=== PATIENT | male | born 1990 | race Caucasian/White ===

== ENCOUNTER 2024-02-14 20:10 | Emergency (ER) | payer OTHER, SELFPAY ==
[2024-02-14 20:11] VITALS: BP 120/80; PULSE 68; RESP 18; TEMP 37; O2SAT 97; BMI 28.0
--- NOTE | 2024-02-14 20:32 | CT_ITS ---
STUDY: CT BRAIN WITHOUT CONTRAST REASON FOR EXAM: Male, 33 years old. headache RADIATION DOSAGE (If Supplied By Facility): CTDIvol = ( 44.99 ) mGy, DLP = ( 829.85 ) mGycm TECHNIQUE: Transaxial CT imaging of the brain was performed without administration of intravenous contrast material. Individualized dose optimization techniques were used for this CT. COMPARISON: No relevant priors. FINDINGS: Normal soft tissue structures. Normal calvarium. Normal size ventricles and extra-axial spaces for the patient''s age. Normal white matter tracts of the cerebral hemispheres. Normal basal ganglia and thalami. Normal brainstem. Normal cerebellum. There is no intracranial hemorrhage. There are no findings of an acute ischemic infarction. Normal visualized paranasal sinuses. CT/Brain/Head without Contrast IMPRESSION: Normal unenhanced CT scan of the brain. Electronically Signed: Brett Pan MD at 21:06 EDT ,
[2024-02-14] MEDS: Metoclopramide 10 MG/2 ML Vial IV (20:45)
[2024-02-14] MEDS: DiphenhydrAMINE 50 MG/ML Syringe 25 MG IV (20:46)
[2024-02-14] MEDS: Ketorolac 15 MG/ML Vial IV (20:46)
[2024-02-14 20:54] LABS: Absolute Lymphocyte Count 3.09 X10^3/uL (0.83-4.51); Basophil# 0.04 X10^3/uL; Basophil% 0.5 % (0-1); Eosinophil# 0.21 X10^3/uL; Eosinophils% 2.4 % (0-5); Hematocrit 44.1 % (40-54); Hemoglobin 15.1 g/dL (13.0-16.5); Lymphocyte # 3.09 X10^3/ul (0.83-4.51); Lymphocyte % 35.4 % (19-41); Mean Corp Hgb Conc 34.2 g/dL (32-36); Mean Corpuscular Hgb 29.1 pg (27.0-32.0); Mean Platelet Vol. 8.4 fl (6.2-12.0); Monocyte# 0.43 X10^3/uL; Monocyte% 4.9 % (0-10); NRBC Flagged by Analyzer 0 % (0-5); Neutrophil # 4.96 X10^3/uL (2.7-7.7); Neutrophil % 56.7 % (47-70); Platelet Count 281 K/mm3 (150-450); RBC Distribution Width SD 39.9 fl (35.1-43.9); Red Blood Count 5.19 M/mm3 (4.6-6.2); White Blood Count 8.7 K/mm3 (4.4-11.0)
[2024-02-14 21:07] LABS: Anion Gap 3 (5-15); BUN 14 mg/dL (7-18); BUN/Creat Ratio 15.9 RATIO (10-20); Calcium,Total 8.4 mg/dL (8.5-10.1); Chloride 109 mmol/L (98-107); Creatinine, Serum 0.88 mg/dL (0.70-1.30); EST Glomerular Filtration Rate 104 mL/min (>60); Est Glom Filt Rate - Afr Amer 126 mL/min (>60); Estimated Creatinine Clearance 135.46 ml/min; Glucose 115 mg/dL (74-106); Potassium 4.4 mmol/L (3.5-5.1); Sodium Level 141 mmol/L (136-145)
--- NOTE | 2024-02-14 21:10 | EDS_ITS ---
<Statement entered by Rani Mayer MD - 02/14/24 23:23> I have personally performed a face to face assessment of the patient and have reviewed the SAMUEL Note. Patient present secondary to migraine headache. He does have a history of migraines. Over the past week or slightly more he has been having frequent headaches behind his eyes. He does have some light sensitivity and nausea as well. He denies any recent URI symptoms. He denies any recent head trauma. Patient lying in a darkened room in no acute distress. Head and neck examination unremarkable. Heart regular rate and rhythm. Lung sounds are clear. Neuroexam is nonfocal. Lab work and CT scan of the head obtained given the duration of his symptoms. No acute findings are noted. Patient received Toradol, Reglan, Benadryl, and IV fluids. Repeat evaluation headache is improved and has been able to sleep. He will be discharged home with family. Return instructions provided. HPI History of Present Illness Chief Complaint: Headache Narrative Narrative: Patient is a 33-year-old male with history of migraine headaches who presents to the emergency department for with worsening headache. Patient states over the last week, week and a half, has been having significant headaches behind his eyes that feels like they are being pulled backwards. Patient has been to the emergency department before for his migraines. He does not remember them being this bad. Patient denies any neurological signs or symptoms such as weakness, patient states he is photosensitive, he also has nausea. [facility] Medical History no medical history Home Medications No Known/Unobtainable [No Known Home Medications] 07/17/16 [History Last Taken Unknown] Allergy/AdvReac Type Severity Reaction Status Date / Time No Known Allergies Allergy Verified 02/14/24 20:12 Family History no significant family his Surgical History no surgical history Social History Smoking Status: Former smoker ROS ROS ED ROS Narrative Constitutional: Negative for fever, chills, weight loss, weakness Eyes: Negative for vision loss, vision change, double vision. Positive photophobia ENT: Negative for any sore throat, ear pain, congestion Cardiovascular: Negative for any chest pain, tightness, palpitations Respiratory: Negative for any cough, sputum production, hemoptysis, dyspnea, dyspnea on exertion, orthopnea Gastrointestinal: Negative for any abdominal pain, vomiting, diarrhea, constipation, blood in stool, blood in vomit. Positive for nausea : Negative for any urinary frequency, dysuria, retention, blood in urine Muscle skeletal: Negative for any neck pain, back pain Neurological: Negative for any syncope, dizziness. Positive for headache, migraine Skin: Negative for any rashes, itching, abrasions, lacerations Psychiatric: Negative for any depression, anxiety, stress, suicidal ideation, homicidal ideation Hematologic: Negative for any excessive bruising, easy bleeding EXAM Physical Exam Narrative Exam Narrative: Vital signs reviewed. HEET: Head normocephalic atraumatic, TMs clear bilaterally. Posterior pharynx is clear, moist mucous membranes. Nares clear bilaterally. Pupils are equal round reactive to light, positive slight photophobia. Negative for any nystagmus Neck: Supple with no lymphadenopathy or tenderness. No signs of meningismus. Cardiac: Regular rate and rhythm no murmurs gallops or rubs, equal peripheral pulses bilaterally. Respiratory: Lungs clear to auscultation bilaterally. No chest tenderness. Abdomen: Soft, nontender, nondistended. No abdominal bruit or pulsatile masses. No hepatosplenomegaly Extremities: No peripheral edema, no signs of gross trauma or deformity. Active full range of motion of all extremities. Neuro: Cranial nerves II through XII intact, no focal neurological deficits. Skin: Clean dry and intact with no rash, purpura, petechiae, vesicles or pustules. Backs/flank: No CVA tenderness, no midline spinal tenderness, no deformity. Psych: Normal mood and affect. No SI, HI or acute psychosis. Const Vital Signs: 02/14/24 20:11 Temperature 98.6 F Temperature Source Oral Pulse Rate 68 Respiratory Rate 18 Blood Pressure 120/80 Blood Pressure Mean 93 Pulse Ox 97 Oxygen Delivery Method Room Air [facility] Lab Data Labs: Laboratory Results - last 24 hr 02/14/24 20:47 WBC 8.7 RBC 5.19 Hgb 15.1 Hct 44.1 MCV 85.0 MCH 29.1 MCHC 34.2 RDW Std Deviation 39.9 RDW Coeff of Geovany 13.0 Plt Count 281 MPV 8.4 Immature Gran % (Auto) 0.100 Neut % (Auto) 56.7 Lymph % (Auto) 35.4 [place] % (Auto) 4.9 Eos % (Auto) 2.4 Baso % (Auto) 0.5 Absolute Neuts (auto) 5.0 Absolute Lymphs (auto) 3.09 Nucleated RBC % 0 Sodium 141
--- NOTE | 2024-02-14 21:10 | EX.ED.DYSGE1 ---
HPI History of Present Illness Chief Complaint: Headache Narrative Narrative: Patient is a 33-year-old male with history of migraine headaches who presents to the emergency department for with worsening headache. Patient states over the last week, week and a half, has been having significant headaches behind his eyes that feels like they are being pulled backwards. Patient has been to the emergency department before for his migraines. He does not remember them being this bad. Patient denies any neurological signs or symptoms such as weakness, patient states he is photosensitive, he also has nausea. PFSH PFS Medical History no medical history Home Medications No Known/Unobtainable [No Known Home Medications] 07/17/16 [History Last Taken Unknown] Allergy/AdvReac Type Severity Reaction Status Date / Time No Known Allergies Allergy Verified 02/14/24 20:12 Family History no significant family his Surgical History no surgical history Social History Smoking Status: Former smoker ROS ROS ED ROS Narrative Constitutional: Negative for fever, chills, weight loss, weakness Eyes: Negative for vision loss, vision change, double vision. Positive photophobia ENT: Negative for any sore throat, ear pain, congestion Cardiovascular: Negative for any chest pain, tightness, palpitations Respiratory: Negative for any cough, sputum production, hemoptysis, dyspnea, dyspnea on exertion, orthopnea Gastrointestinal: Negative for any abdominal pain, vomiting, diarrhea, constipation, blood in stool, blood in vomit. Positive for nausea : Negative for any urinary frequency, dysuria, retention, blood in urine Muscle skeletal: Negative for any neck pain, back pain Neurological: Negative for any syncope, dizziness. Positive for headache, migraine Skin: Negative for any rashes, itching, abrasions, lacerations Psychiatric: Negative for any depression, anxiety, stress, suicidal ideation, homicidal ideation Hematologic: Negative for any excessive bruising, easy bleeding EXAM Physical Exam Narrative Exam Narrative: Vital signs reviewed. HEET: Head normocephalic atraumatic, TMs clear bilaterally. Posterior pharynx is clear, moist mucous membranes. Nares clear bilaterally. Pupils are equal round reactive to light, positive slight photophobia. Negative for any nystagmus Neck: Supple with no lymphadenopathy or tenderness. No signs of meningismus. Cardiac: Regular rate and rhythm no murmurs gallops or rubs, equal peripheral pulses bilaterally. Respiratory: Lungs clear to auscultation bilaterally. No chest tenderness. Abdomen: Soft, nontender, nondistended. No abdominal bruit or pulsatile masses. No hepatosplenomegaly Extremities: No peripheral edema, no signs of gross trauma or deformity. Active full range of motion of all extremities. Neuro: Cranial nerves II through XII intact, no focal neurological deficits. Skin: Clean dry and intact with no rash, purpura, petechiae, vesicles or pustules. Backs/flank: No CVA tenderness, no midline spinal tenderness, no deformity. Psych: Normal mood and affect. No SI, HI or acute psychosis. Const Vital Signs: 02/14/24 20:11 Temperature 98.6 F Temperature Source Oral Pulse Rate 68 Respiratory Rate 18 Blood Pressure 120/80 Blood Pressure Mean 93 Pulse Ox 97 Oxygen Delivery Method Room Air [facility] MDM Lab Data Labs: Laboratory Results - last 24 hr 02/14/24 20:47 WBC 8.7 RBC 5.19 Hgb 15.1 Hct 44.1 MCV 85.0 MCH 29.1 MCHC 34.2 RDW Std Deviation 39.9 RDW Coeff of Geovany 13.0 Plt Count 281 MPV 8.4 Immature Gran % (Auto) 0.100 Neut % (Auto) 56.7 Lymph % (Auto) 35.4 Hand % (Auto) 4.9 Eos % (Auto) 2.4 Baso % (Auto) 0.5 Absolute Neuts (auto) 5.0 Absolute Lymphs (auto) 3.09 Nucleated RBC % 0 Sodium 141 Potassium 4.4 Chloride 109 H Carbon Dioxide 29.0 Anion Gap 3 L BUN 14 Creatinine 0.88 Estim Creat Clear Calc 135.46 Est GFR (MDRD) Af Amer 126 Est GFR (MDRD) Non-Af 104 BUN/Creatinine Ratio 15.9 Glucose 115 H Calcium 8.4 L Radiography Diagnostic Testing: Clinical Impression(s) from Imaging Studies Brain CT 02/14/24 20:32 IMPRESSION: Normal unenhanced CT scan of the brain. Electronically Signed: Brett Pan MD at 21:06 EDT , Treatment and Re-Evaluation :: Differential diagnosis includes however is not limited to: Acute on chronic migraine headache, atypical migraine, stress headache, thunderclap headache Patient appears to be in no obvious respiratory distress vital signs are stable, patient looks nontoxic. Presenting to the emergency department after having a migraine-like headache for the last 1.[address] scan of the brain will be completed, patient will receive migraine cocktail such as a IV fluids, Reglan, Benadryl as well as Toradol. Patient will be reevaluated. Patient on reevaluation feels better. Patient states that he is able to sleep and like to go home and be discharged. Patient's laboratory values as well as CT scan of the brain were negative. At this time, I do believe the patient is stable for discharge, he was given red flag signs to return, he is happy with the plan of care, patient stable for discharge. Discharge Plan Triage Chief Complaint: Headache ED Midlevel Provider: Minh Ordoñez ED Provider: Rani Mayer Dx/Rx/DC Orders Clinical Impression: Migraine headache Instructions: ED, Migraine (Classical) Prescriptions: No Action No Known Home Medications Primary Care Provider: Care Physician,No Primary Referrals: Adarsh Garcia MD [Non-Staff -Ordering Privileges] - Care Physician,No Primary [Primary Care Provider] - Activity Restrictions/Additional Instructions: Please maintain hydration. Go home and go to bed. Try to rest is much as possible tomorrow stay off your phone, decrease stimuli. Return if worse. May also follow-up with neurology if headaches continue Disposition Disposition: Home, Self Care
[2024-02-14] MEDS: 0.9% Normal Saline (1000mL) 1,000 ML 999 ML IV (21:11)
[2024-02-14 22:26] VITALS: BP 118/74; PULSE 72; RESP 16; O2SAT 99
[2024-02-14 22:27] VITALS: BP 118/74; PULSE 72; RESP 16; TEMP 37; O2SAT 99
== END 2024-02-14 22:36 | disposition home or self-care (01) ==
PROVIDERS: Nurse Practitioner; Emergency Provider Emergency Medicine; Visit Provider Emergency Medicine
DX: G43.909 Migraine, unspecified, not intractable, without status migrainosus (principal); Z87.891 Personal history of nicotine dependence
CPT/HCPCS: 70450; 80048; 85025; 96361; 96374; 96375; 99283; J7030; A4216

== ENCOUNTER → 2024-11-02 | Outpatient (CLI) | payer OTHER, SELFPAY ==
--- NOTE | 2024-11-02 13:30 | RAD_ITS ---
STUDY: X-RAY - LUMBAR SPINE REASON FOR EXAM: Male, 34 years old. 3 day history of low back pain. TECHNIQUE: 2 view(s) of the lumbar spine were obtained. COMPARISON: None FINDINGS: There is straightening of the normal lumbar lordosis. There is no substantial scoliosis. There is a normal alignment of the vertebrae. Normal vertebral bodies and endplates. Normal disc space heights. The soft tissue structures are unremarkable. RAD/Lumbar Spine 2 or 3 Views IMPRESSION: Straightening of the normal lumbar lordosis. Electronically Signed: Jhonny Antonio MD at 13:54 EST ,
== END | disposition home or self-care (01) ==
LOC: MTRAD 13:28
PROVIDERS: Referring Provider Physician Assistant; Visit Provider Physician Assistant
DX: M54.50 Low back pain, unspecified (principal)

== ENCOUNTER 2024-11-13 15:30 | Outpatient (RCR) | payer OTHER, SELFPAY ==
--- NOTE | 2024-11-11 18:54 | HP.PTEVAL_ITS ---
Patient's Visit Information Visit Information Visit Information: LEILANI ALEMAN is a 34 year old M referred to Physical Therapy by RICHARD Armas with a diagnosis of Lumbar strain. Date of Evaluation: 11/11/24 Physical Therapist: STEVAN Garcia Visit Plan Frequency: 2x /Week Duration: 2 Months Plan: 2X/ week for 8 weeks for centralization of symptoms using extension principle, postural exercises, core stability with HEP HEP: prone press up 4 X/ day Pt is aware to stop press ups if causes radic sx Subjective Subjective: Pt reports that last Sat (1 week ago this Sat) and he bent over to get the dogs tennis ball and felt a pop twice in his back. He did not move at all on Saturday. He went to [facility] on Saturday and he did what he could do and then [facility] because if he would stand up he would get a sharp jolt and then fell to the ground. All week long he has been in bed or on the couch and he has been doing ice and 7 days on Prednisone and muscle relaxor and yesterday he actually had a good day. Even today he could walk around but the second he is not too careful he will feel it. He has had no MRI/CATSCAN. He did get an x-ray and showed a straight spine. Sitting bothers him and tries to keep the pressure off the L side. Laying down he is pretty comfortable with pillows under his thighs. He has no N&T in his legs. He sleeps on his sides and prefers the R side. He has pretty stiff in his back in the morning. Pt does concrete but laid off right now. They are talking about going back next week. Pain L leg pain: Pain Intensity (Out of 10): 0 L sided back pain: Pain Intensity (Out of 10): 6 Objective Objective: Gait: walks with decrease stride length and upper shoulders shifted to the L LE MMT: R hip flex 13.6 and L 9.5 R knee ext 18.6 and L 21.2 R knee flex 8.5 and L 8.1 Patella DTR's 0/3 B Pt is able to heel and toe raise + SLR on the R for R sided back pain + SLR on the L for slight L sided back pain Pt is unable to bridge due to pain Increase pain on the R for Piriformis stretch and none on the L Prone lying no pain Prone lying to JESSE no pain 3 X 5 Prone press up 3 X 5 and then 3 X 5 and was able to walk with m ore ease but still had shift Instructed pt in good posture with towel roll and told him no bucket seats Balance/Special Test Scores Oswestry Low Back Score: 27 Goals Goal 1:: I HEP Goal Time Frame: 6-8 Weeks Goal 2:: Centralize symptoms to L spine Goal Time Frame: 6-8 Weeks Goal 3:: Be able to sit with upright posture Goal Time Frame: 6-8 Weeks Goal 4:: Walk with no trunk shift Goal Time Frame: 6-8 Weeks Rehabilitation Potential Rehabilitation Potential: Good Anticipated Interventions Patient/Client Instruction: Educate patient on: Condition and Plan of Care For the Purpose of:: To decrease pain, To increase ROM, To improve nutrient delivery to tissue, To improve muscle performance and motor function, To improve ability to perform ADL's, To improve performance and independence with ADL's, To decrease level of supervision to perform tasks, To improve ability of physical actions for home/community/work/leisure, To improve gait and locomotor functions, To improve health of tissue, To decrease soft tissue restriction and To increase flexibility/ROM Therapeutic Exercise to Include: Strength training, Body mechanics, Postural training, Flexibilty training, Gait and locomotor training, Neuromotor development, Active ROM, Dynamic Lumbar Stabilization, Elver Exercises and Scapular Strength/Stabilization For the Purpose of:: To decrease pain, To increase ROM, To improve nutrient delivery to tissue, To improve muscle performance and motor function, To improve ability to perform ADL's, To increase tolerance to activity/condition/position, To improve performance and independence with ADL's, To improve ability of physical actions for home/community/work/leisure, To improve gait and locomotor functions, To improve health of tissue, To decrease soft tissue restriction, To increase flexibility/ROM, To improve endurance and To improve safety with gait Manual Therapy Techniques to Include: Mobilization and Soft tissue mobilization For the Purpose of:: To increase ROM, To improve nutrient delivery to tissue, To improve muscle performance and motor function, To improve ability to perform A DL's, To improve health of tissue, To decrease soft tissue restriction and To increase flexibility/ROM IF ES: Yes Cryotherapy (ice pack, ice massage): Yes Thermo therapy (hot pack): Yes Ultrasound (thermal/non thermal): Yes For the Purpose of:: To decrease pain, To increase ROM, To improve nutrient delivery to tissue, To improve muscle performance and motor function, To improve ability to perform ADL's, To increase tolerance to activity/condition/position, To improve gait and locomotor functions, To improve health of tissue, To decrease soft tissue restriction and To increase flexibility/ROM Text: Thank you for the opportunity to evaluate your patient. For Medicare and Medicare HMO plans, please review the plan of care and approve it. It will need to be FAXED BACK to us at [phone] for Medicare purposes. For Medicare only, by signing this I certify the plan of care. Please let me know if there are questions or concerns regarding this plan of care. Physician Signature: Date:
--- NOTE | 2025-04-12 08:49 | HP.PT.NRP ---
Patient Information Patient Information: LEILANI ALEMAN was seen in my office for initial evaluation on 11/11/24. The following Plan of Care was established for this patient: POC Established Initial Frequency: 2x /Week Initial Duration: 2 Months Anticipated Interventions Patient/Client Instruction: Educate patient on: Condition and Plan of Care For the Purpose of:: To decrease pain, To increase ROM, To improve nutrient delivery to tissue, To improve muscle performance and motor function, To improve ability to perform ADL's, To improve performance and independence with ADL's, To decrease level of supervision to perform tasks, To improve ability of physical actions for home/community/work/leisure, To improve gait and locomotor functions, To improve health of tissue, To decrease soft tissue restriction and To increase flexibility/ROM Therapeutic Exercise to Include: Strength training, Body mechanics, Postural training, Flexibilty training, Gait and locomotor training, Neuromotor development, Active ROM, Dynamic Lumbar Stabilization, Elver Exercises and Scapular Strength/Stabilization For the Purpose of:: To decrease pain, To increase ROM, To improve nutrient delivery to tissue, To improve muscle performance and motor function, To improve ability to perform ADL's, To increase tolerance to activity/condition/position, To improve performance and independence with ADL's, To improve ability of physical actions for home/community/work/leisure, To improve gait and locomotor functions, To improve health of tissue, To decrease soft tissue restriction, To increase flexibility/ROM, To improve endurance and To improve safety with gait Manual Therapy Techniques to Include: Mobilization and Soft tissue mobilization For the Purpose of:: To increase ROM, To improve nutrient delivery to tissue, To improve muscle performance and motor function, To improve ability to perform ADL's, To improve health of tissue, To decrease soft tissue restriction and To increase flexibility/ROM IF ES: Yes Cryotherapy (ice pack, ice massage): Yes Thermo therapy (hot pack): Yes Ultrasound (thermal/non thermal): Yes For the Purpose of:: To decrease pain, To increase ROM, To improve nutrient delivery to tissue, To improve muscle performance and motor function, To improve ability to perform ADL's, To increase tolerance to activity/condition/position, To improve gait and locomotor functions, To improve health of tissue, To decrease soft tissue restriction and To increase flexibility/ROM Last Seen Last Seen: This patient was last seen in our office 11/13/24. Pertinent comments regarding their Physical therapy will appear below: SANDRA PT At this point I will be discontinuing this patient from physical therapy. I would be happy to see this patient again in the future if found appropriate by the physician. Thank you! Jody Rivera, STEVAN Balance/Gait/Functional tests Balance/Special Test Scores Oswestry Low Back Score: 27
== END 2024-11-13 19:00 | disposition home or self-care (01) ==
LOC: PT 15:30
PROVIDERS: Referring Provider Physician Assistant; Visit Provider Physician Assistant
DX: S39.012D Strain of muscle, fascia and tendon of lower back, subsequent encounter (principal)
CPT/HCPCS: 97110; 97161